=== PATIENT | male | born 1985 | race African-American/Black ===

== ENCOUNTER 2016-10-07 17:54 | Emergency (ER) | payer OTHER ==
--- NOTE | ~2016-10-07 | CR63 ---
[facility] A Service of [facility] & [facility] RADIOLOGY TEXT RESULTS PATIENT: STEPHEN BUTLER LOCATION: [place] : [birth year] UNIT #: [id number] AGE: [address]: Anusha Purcell SEX: M ORDER DR: [id number] [facility] [address] [place], [place] [address] [id number] E MR#: [id number] Acc #: [id number] NAME: STEPHEN BUTLER : 1985 SEX: M STUDY DATE/TIME: 10/07/2016 17:30 UNIT: [facility] ROOM: STUDY DESCRIPTION: CR Chest 2 View Attending Physician: Ansuha Purcell P.A.-C. Ordering Physician: Anusha Purcell P.A.-C. Primary Care Physician: Primary Care Physician No MEDICAL IMAGING REPORT This report is preliminary unless electronic signature is present EXAM Two-view chest INDICATIONS Cough and shortness of air since June 2016. PROCEDURE Frontal and lateral views of the chest. COMPARISON None FINDINGS Elevated left hemidiaphragm. No dense consolidation, effusion or pneumothorax. IMPRESSION No active process. Elevated left hemidiaphragm. Dictated by... Pollo Arguelles M.D. THIS IS AN ELECTRONICALLY VERIFIED REPORT Pollo Arguelles M.D. at 10/09/2016 6:59 AM EED/ping TD: 10/08/2016 00:05 JOB #: [id number] MEDICAL IMAGING REPORT COPY
== END 2016-10-07 18:39 | disposition home or self-care (01) ==
LOC: CFTX 17:54
DX: R05 Cough (principal); Z77.22 Contact with and (suspected) exposure to environmental tobacco smoke (acute) (chronic)
CPT/HCPCS: 71020; 99283

== ENCOUNTER 2016-10-31 18:34 | Emergency (ER) | payer OTHER | END 2016-10-31 18:36 | disposition home or self-care (01) | LOC: CFTX 18:34 | DX: H10.31 Unspecified acute conjunctivitis, right eye (principal) | CPT/HCPCS: 99283 ==